=== PATIENT | male | born 1980 | race Caucasian/White ===

== ENCOUNTER 2021-02-10 11:12 | Outpatient (CLI) | payer OTHER ==
[2021-02-10 17:08] LABS: SARS-CoV-2 PCR by NAA Not Detected (NotDetected)
== END 2021-02-10 11:13 | disposition home or self-care (01) ==
LOC: CSHLAB 11:12
PROVIDERS: ATTEND Internal Medicine Gastroenterology
DX: Z01.812 Encounter for preprocedural laboratory examination (principal); Z20.822 Contact with and (suspected) exposure to COVID-19; K62.5 Hemorrhage of anus and rectum; R19.7 Diarrhea, unspecified
CPT/HCPCS: U0003; U0005

== ENCOUNTER 2021-02-15 11:28 | Day surgery (SDC) | payer OTHER ==
[2021-02-12 13:16] VITALS: BMI 44.7
[2021-02-15] MEDS ORDERED: Lidocaine 1% MPF 2 ML VIAL ONE (11:35)
[2021-02-15] MEDS ORDERED: PROPOFOL 0 ML ONE (11:37)
[2021-02-15] MEDS ORDERED: Lidocaine 2% PF 100 mg/5 ml Syringe ONE (11:37)
[2021-02-15] MEDS ORDERED: PROPOFOL 20 ML ONE (12:37)
[2021-02-15] MEDS ORDERED: PROPOFOL 40 ML ONE (12:39)
[2021-02-15] MEDS ORDERED: Esmolol 100 MG/10 ML VIAL ONE (12:45)
== END 2021-02-15 13:21 | disposition home or self-care (01) ==
LOC: CSHSDC 11:28
PROVIDERS: ATTEND Internal Medicine Gastroenterology
PROC: 0DBP8ZZ Excision of Rectum, Via Natural or Artificial Opening Endoscopic (ICD-10-PCS; principal; 2021-02-15)
DX: K62.5 Hemorrhage of anus and rectum (principal); K63.5 Polyp of colon; K57.30 Diverticulosis of large intestine without perforation or abscess without bleeding; K64.9 Unspecified hemorrhoids; I10 Essential (primary) hypertension; F32.9 Major depressive disorder, single episode, unspecified; F41.9 Anxiety disorder, unspecified; E66.9 Obesity, unspecified; F17.210 Nicotine dependence, cigarettes, uncomplicated
CPT/HCPCS: 88305; J2001; J2704

== ENCOUNTER 2024-04-05 08:13 | Outpatient (CLI) | payer BC | END 2024-04-05 08:14 | disposition home or self-care (01) | LOC: CSHSLEEP 08:13 | PROVIDERS: ATTEND Physician Assistant | DX: G47.33 Obstructive sleep apnea (adult) (pediatric) (principal); F32.A Depression, unspecified; F41.9 Anxiety disorder, unspecified; E66.9 Obesity, unspecified; Z68.41 Body mass index [BMI] 40.0-44.9, adult; R06.83 Snoring; G47.00 Insomnia, unspecified | CPT/HCPCS: 95811 ==